=== PATIENT | female | born 1940 | race Hispanic/Latino ===

== ENCOUNTER 2018-06-08 17:27 | Observation (INO) | payer MEDICARE ==
[~2018-06-08] VITALS: Ht 147.3 cm; Wt 79.1 kg
[2018-06-08 19:00] LABS: BILIRUBIN,URINE NEGATIVE (NEGATIVE); CLARITY,URINE CLEAR (CLEAR); COLOR,URINE YELLOW (YELLOW); KETONES,URINE NEGATIVE (NEGATIVE); LEUKOCYTE ESTERASE ,URINE TRACE (NEGATIVE); NITRITE,URINE NEGATIVE (NEGATIVE); PROTEIN,URINE DIPSTICK NEGATIVE (NEGATIVE); URINE UROBILINOGEN 0.2 mg/dL (0.2 - 1)
--- NOTE | 2018-06-08 19:11 | NUR ---
SEEN IN TRIAGE BY EDITORIAL INTERN
[2018-06-08 19:12] LABS: AMORPHOUS SEDIMENT,URINE FEW (FEW); BACTERIA,URINE MODERATE /HPF; WBC,URINE (MAN) 0-5 /HPF (0-5)
--- NOTE | 2018-06-08 19:46 | Diagnostic Imaging Report ---
EXAMINATION: CHEST SINGLE (PORTABLE) INDICATION: Chest pain. ^CHEST PAIN ^Y COMPARISON: None FINDINGS: TUBES and LINES: None. LUNGS: Lungs are well inflated. Lungs are clear. There is no evidence of pneumonia or pulmonary edema. PLEURA: No pleural effusion or pneumothorax. HEART AND MEDIASTINUM: The cardiomediastinal silhouette is unremarkable. BONES AND SOFT TISSUES: No acute osseous lesion. Soft tissues are unremarkable. UPPER ABDOMEN: No free air under the diaphragm. IMPRESSION: No acute thoracic abnormality. Signed by: Dr. Rick Daigle M.D. on 06/08/2018 7:43 PM
[2018-06-08 19:47] LABS: BASOPHILS % 0.4 % (0.0-1.0); EOSINOPHILS # (AUTO) 0.1 (0.0-0.4); EOSINOPHILS % 1.3 % (0.0-6.0); HEMATOCRIT 38.6 % (38.2-49.6); HEMOGLOBIN 12.3 g/dL (14.0-18.0); LYMPHOCYTES # (AUTO) 1.8 (1.0-3.2); MEAN CORPUSCULAR HEMOGLOBIN 30.3 pg (28-32); MEAN CORPUSCULAR HGB CONC 31.9 g/dL (31-35); MEAN CORPUSCULAR VOLUME 95.1 fL (81-99); MONOCYTES # (AUTO) 0.5 (0.2-0.8); MONOCYTES % 6.1 % (4.4-11.3); NEUTROPHILS # (AUTO) 5.8 (2.1-6.9); NEUTROPHILS % 69.8 % (38.7-80.0); PLATELET COUNT 171 x10e3/uL (140-360); RED BLOOD COUNT 4.06 x10e6/uL (4.3-5.7); RED CELL DISTRIBUTION WIDTH 13.4 % (11.7-14.4)
[2018-06-08 19:55] LABS: INR 0.92; PROTHROMBIN TIME 12.9 seconds (11.9-14.5)
[2018-06-08 19:56] LABS: PARTIAL THROMBOPLASTIN TIME 28.1 seconds (23.8-35.5)
[2018-06-08 20:02] LABS: ALBUMIN 3.8 g/dL (3.5-5.0); ALBUMIN/GLOBULIN RATIO 1.3 (0.8-2.0); CREATININE, SERUM 1.23 mg/dL (0.72-1.25)
[2018-06-08 20:12] LABS: CREATINE KINASE MB 7.1 ng/mL (0-5.0)
[2018-06-08] MEDS ORDERED: LISINOPRIL40 MG PO (21:55)
[2018-06-08] MEDS ORDERED: PIOGLITAZONE HC30 MG PO (21:55)
[2018-06-08] MEDS ORDERED: LOVASTATIN20 MG PO (21:55)
[2018-06-08] MEDS ORDERED: GLIPIZIDE5 MG PO (21:55)
[2018-06-08] MEDS ORDERED: SODIUM CHLORIDE FLUSH 10 ML SYR INJ PRN (22:00)
[2018-06-08] MEDS ORDERED: ONDANSETRON HCL INJ 2MG/ML 2ML 2 MG/ML VIAL IV PRN (22:00)
[2018-06-08] MEDS ORDERED: ACETAMINOPHEN 325 MG TAB PO PRN (22:00)
--- OUTSIDE RECORDS SUMMARY | 2018-06-08 22:00 | XMS REPORT ---
Author [facility] Address Unknown Phone Unavailable Care Team Providers Care Correction Officer [employer] Name Role Phone Bernard PALACIOS Unavailable Unavailable Problems This patient has no known problems. Allergies, Adverse Reactions, Alerts This patient has no known allergies or adverse reactions. Medications This patient has no known medications. Results Test Description Test Time Test Comments Text Results Atomic Results Result Comments CHEST SINGLE (PORTABLE) 2018-06-08 19:43:00 [place] [address] Patient Name: NAKITA GARCIA MR #: [id number] : 1940 Age/Sex: 77/M Req #: [id number] Adm Physician: Ordered by: YONIS PALACIOS MD Report #: [id number] Location: ER Room/Bed: Procedure: [id number] DX/CHEST SINGLE (PORTABLE) Exam Date: Exam Time: REPORT STATUS: Signed EXAMINATION: CHEST SINGLE (PORTABLE) INDICATION: Chest pain. CHEST PAIN Y COMPARISON: None FINDINGS: TUBES and LINES: None. LUNGS: Lungs are well inflated. Lungs are clear. There is no evidence of pneumonia or pulmonary edema. PLEURA: No pleural effusion or pneumothorax. HEART AND MEDIASTINUM: The cardiomediastinal silhouette is unremarkable. BONES AND SOFT TISSUES: No acute osseous lesion. Soft tissues are unremarkable. UPPER ABDOMEN: No free air under the diaphragm. IMPRESSION: No acute thoracic abnormality. Signed by: Dr. Rick Daigle M.D. on 06/08/2018 7:43 PM Dictated By: RICK DAIGLE MD, MD 42 Transcribed By: SHAHID on 06/08/181942 COPY TO: YONIS PALACIOS MD
[2018-06-08] MEDS: FAMOTIDINE 20 MG/2 ML VIAL IV SCH (22:12)
[2018-06-09] VITALS (8 sets, daily range): BP systolic 126–142; BP diastolic 56–69
[2018-06-09 05:50] LABS: BASOPHILS % 0.3 % (0.0-1.0); EOSINOPHILS # (AUTO) 0.2 (0.0-0.4); EOSINOPHILS % 2.2 % (0.0-6.0); HEMATOCRIT 35.1 % (34.2-44.1); HEMOGLOBIN 11.3 g/dL (12.0-16.0); LYMPHOCYTES # (AUTO) 1.7 (1.0-3.2); LYMPHOCYTES % 24.5 % (18.0-39.1); MEAN CORPUSCULAR HGB CONC 32.2 g/dL (31-35); MEAN CORPUSCULAR VOLUME 96.2 fL (81-99); MONOCYTES # (AUTO) 0.6 (0.2-0.8); MONOCYTES % 8.4 % (4.4-11.3); NEUTROPHILS # (AUTO) 4.4 (2.1-6.9); NEUTROPHILS % 64.3 % (38.7-80.0); PLATELET COUNT 139 x10e3/uL (140-360); RED BLOOD COUNT 3.65 x10e6/uL (3.6-5.1); RED CELL DISTRIBUTION WIDTH 13.3 % (11.7-14.4)
[2018-06-09] MEDS: NITROGLYCERIN 2% OINT 1 GM PKT TOP SCH ×2 (06:00)
--- NOTE | 2018-06-09 06:29 | NUR ---
The patient is laying in bed on her left side. She has denied pain/discomfort in her chest all night. She is no apparent distress, respirations are even and unlabored. She stated that she preferred not to receive the nitroglycerin patch as she has not experienced any discomfort. Blood pressure within limits. Denies any other symptoms at this time. Bed low, wheels locked and call light within reach. Daughter at bedside.
[2018-06-09 07:08] LABS: ALBUMIN 3.1 g/dL (3.5-5.0); ALBUMIN/GLOBULIN RATIO 1.1 (0.8-2.0); ANION GAP 15.1 mmol/L (8-16); CALCIUM 8.9 mg/dL (8.4-10.2); CHOL/HDL RATIO 2.5 (3.0-3.6); CREATININE, SERUM 1.14 mg/dL (0.57-1.11); POTASSIUM 4.1 mmol/L (3.5-5.1)
--- NOTE | 2018-06-09 08:14 | NUR ---
Patient resting in bed,Alert with no distress, family at bed side
[2018-06-09] MEDS ORDERED: SODIUM CHLORIDE 0.9% 1000ML 1,000 ML IV SCH (08:30)
[2018-06-09] MEDS ORDERED: DEXTROSE 50% SYRINGE 50 ML IV PRN (08:45)
[2018-06-09] MEDS ORDERED: ASPIRIN 81 MG ENTERIC COATED PO SCH (09:00)
[2018-06-09] MEDS: FAMOTIDINE 20 MG/2 ML VIAL IV SCH (09:04)
[2018-06-09] MEDS: LISINOPRIL 20 MG TAB PO SCH ×2 (09:04→16:38)
[2018-06-09] MEDS: SODIUM CHLORIDE 0.45% 1,000 ML IV SCH (09:04)
[2018-06-09] MEDS ORDERED: ONDANSETRON HCL 4 MG ORAL DISINTEGRATING TAB PO PRN (10:00)
[2018-06-09 11:55] LABS: CREATINE KINASE MB 4.8 ng/mL (0-5.0)
--- NOTE | 2018-06-09 13:31 | Diagnostic Imaging Report ---
EXAMINATION: CT of the abdomen and pelvis with contrast. TECHNIQUE: Spiral CT images of the abdomen and pelvis were performed from the lung bases to the lesser trochanters after the intravenous administration of 100 cc of Isovue-370 and the oral administration of water. Coronal and sagittal reformatted images were obtained. COMPARISON: None. CLINICAL HISTORY:Abdominal pain DISCUSSION: ABDOMEN/PELVIS: LOWER THORAX:6-7 mm solid nodule medial segment right lower lobe. Lung bases otherwise unremarkable. HEPATOBILIARY: No focal hepatic lesions. No intra-or extrahepatic biliary ductal dilation. The gallbladder is normal. SPLEEN: No splenomegaly. PANCREAS: No focal masses or ductal dilatation. ADRENALS: No adrenal nodules. KIDNEYS/URETERS: Subcentimeter hypoattenuating lesions within both kidneys, too small to further characterize but likely represent small cysts. 1.3 cm parenchymal cyst in the right kidney. No hydronephrosis. No renal or ureteral calculi. PELVIC ORGANS/BLADDER: The urinary bladder is unremarkable. Uterus is anteflexed and appears normal. No adnexal mass. PERITONEUM/RETROPERITONEUM: No ascites. No pneumoperitoneum. LYMPH NODES: No pelvic sidewall, retroperitoneal, or mesenteric lymphadenopathy. VESSELS: Atherosclerotic calcification of the abdominal aorta and major branch vessels without aneurysmal dilatation. Portal vein, splenic vein, and central superior mesenteric vein are patent. GI TRACT: The large bowel shows no evidence of distention or wall thickening. Gas and fecal material are noted throughout. The appendix is normal. There is no small bowel dilatation to suggest obstruction. BONES AND SOFT TISSUE: No osseous destructive lesions. Multilevel degenerative disc changes and facet arthropathy of the lumbar spine. Small fat-containing umbilical hernia without inflammatory change. IMPRESSION: No acute intra-abdominal or pelvic CT abnormalities. 6-7 mm solid nodule in the right lower lobe should be further evaluated by follow-up CT scan of the chest without contrast in 6-12 months per Fleischner Society 2017 guidelines. Atherosclerotic vascular disease. Signed by: Dr. Michael Love M.D. on 06/09/2018 1:28 PM
--- NOTE | 2018-06-09 13:44 | Consultation ---
DATE OF CONSULTATION: 06/08/2018 REASON FOR CONSULTATION: Chest pain. CONSULTING PHYSICIAN: Dr. Bravo. HISTORY OF PRESENT ILLNESS: This is a pleasant 77-year-old female, who presented with chest pain. According to daughter at the bedside, she has history of high blood pressure, diabetes, and hyperlipidemia, and she complained of chest pain x3 days. She described it as a constant pressure on a scale of 3/10 with no radiation and generalized muscle weakness. She denied any palpitation, any shortness of breath, any diaphoresis, any headache, nausea, or vomiting. Troponin x2 was negative. CK and CK-MB was elevated. Chest x-ray showed no abnormalities. BNP 118. An EKG showed normal sinus rhythm with no ST abnormalities. PAST MEDICAL HISTORY: Hypertension, diabetes, hyperlipidemia. PAST SURGICAL HISTORY: Bilateral cataract surgery. FAMILY HISTORY: Positive for diabetes. SOCIAL HISTORY: No smoking. No drinking. She lives at home with the daughter. MEDICATIONS: She was on glipizide, lovastatin, lisinopril, and pioglitazone. ALLERGIES: SHE IS NOT ALLERGIC TO ANY MEDICATION. REVIEW OF SYSTEMS: Negative except those mentioned above. PHYSICAL EXAMINATION: VITAL SIGNS: Temperature 97, heart rate 62, blood pressure 139/65, respirations 18, oxygen saturation 99% on room air. GENERAL: She is awake, alert, and oriented x3. HEENT: Mucous membranes moist. NECK: Supple. LUNGS: Bilateral clear to auscultation. CARDIOVASCULAR: S1, S2 present. ABDOMEN: Soft. NEUROLOGICAL: Intact. EXTREMITIES: With no edema. LABS: Sodium 141, potassium 4.1, chloride 109, CO2 of 21, BUN 28, creatinine 1.14, glucose 165. White blood cell 6.87, hemoglobin 11.3, hematocrit 35.1, platelet 139. PT 12.9, PTT 28.1, INR 0.92. IMPRESSION: 1. Chest pain. 2. Acute rhabdomyolysis. 3. Hypertension. 4. Diabetes. 5. Hyperlipidemia. PLAN: 1. We will get serial cardiac enzymes. 2. We will put her on IV fluids. 3. Pending echo to assess the LV and the valve function. 4. We will hold her statin for now. 5. We will continue her blood pressure medication. Further cardiac workup pending clinical course. Thank you for this consultation. Dictated by Sunny Gilliland, [employer] C[employer]TER FINISHER MD ALONSO Guerra/CE /[id number]
--- NOTE | 2018-06-09 14:24 | History and Physical ---
PRIMARY CARE PHYSICIAN: Dr. Emir Diehl. PIPELAYER: Dr. Daniel Vuong. CHIEF COMPLAINT: Epigastric pain. HISTORY OF PRESENT ILLNESS: This is a 77-year-old female recently diagnosed with diabetes with Dr. Emir Diehl. The patient was placed on some medication, she could not recall the name. Apparently, she was sleeping during the night and when she lies down, she gets some epigastric pain that radiate into her back. The patient's first set and second set of cardiac enzymes were negative. Baseline hypertension, newly diagnosed diabetes type 2, on home medications. PAST MEDICAL HISTORY: Obesity, diabetes type 2, hypertension, dyslipidemia. PAST SURGICAL HISTORY: Noncontributory. SOCIAL HISTORY: The patient does not smoke or use alcohol. No recreational drugs. ALLERGIES: NO KNOWN ALLERGIES. HOME MEDICATIONS: Glipizide, lisinopril, lovastatin, and Actos. REVIEW OF SYSTEMS: Epigastric pain completely resolved. No headaches. No nausea. No vomiting. PHYSICAL EXAMINATION: VITAL SIGNS: Temperature is 97, blood pressure 139/65, pulse rate 62, respirations 18. GENERAL: The patient is not in acute distress. She is awake. HEENT: Normocephalic, atraumatic. Anicteric. NECK: Supple grossly. PULMONARY: Diminished breath sounds without any wheezing or rales. CARDIOVASCULAR: S1, S2. Regular rate and rhythm. ABDOMEN: Obese, but some tenderness along the epigastric on deep palpation. No distention. No guarding. EXTREMITIES: No cyanosis or edema. NEUROLOGIC: No gross focal deficit. LABORATORY DATA: Sodium is 141, potassium 4.1, chloride 109, bicarb 21, BUN is 28, creatinine 1.1, glucose 155. WBC 6.8, hemoglobin 11.3, hematocrit 35, platelets are 139. Liver enzymes are unremarkable. IMPRESSION: 1. Epigastric pain, reproducible with palpation. 2. Baseline hypertension with recent diabetes type 2 diagnosis and also dyslipidemia. PLAN: Continue home medication. We will stop the Actos. Gentle IV fluids. Check cardiac enzymes. Check echocardiogram. We will monitor the patient closely. MD ANUPAMA Elias/MODL /[id number]
[2018-06-09] MEDS ORDERED: IOPAMIDOL 370 MG/ML 200 ML INFUS..BTL INJ ONE (14:25)
[2018-06-09] MEDS ORDERED: SODIUM CHLORIDE 0.9% 50ML 50 ML ONE (14:25)
[2018-06-09] MEDS: GLIPIZIDE 5 MG TAB PO SCH (16:38)
[2018-06-09] MEDS: INSULIN LISPRO 100 UNIT/1 ML 3ML VIAL SQ SCH ×2 (16:46→21:00)
--- NOTE | 2018-06-09 19:00 | NUR ---
received report from day nurse. patient is resting comfortably in bed.
[2018-06-09] MEDS ORDERED: SIMVASTATIN 20 MG TAB PO SCH (21:00)
[2018-06-09] MEDS: FAMOTIDINE 20 MG TAB PO SCH (21:15)
[2018-06-10] VITALS: BP 122/57
[2018-06-10] MEDS: SODIUM CHLORIDE 0.45% 1,000 ML IV SCH (00:42)
[2018-06-10 04:00] VITALS: BP 142/65
[2018-06-10 06:02] LABS: ANION GAP 11.6 mmol/L (8-16); CALCIUM 9.2 mg/dL (8.4-10.2); CREATININE, SERUM 1.12 mg/dL (0.57-1.11); POTASSIUM 4.6 mmol/L (3.5-5.1)
--- NOTE | 2018-06-10 06:58 | NUR ---
report given to day nurse. patient is resting comfortably in bed.
--- NOTE | 2018-06-10 07:19 | NUR ---
patient resting in bed. Alert with no distress, call light in reach, family at bed side
[2018-06-10 07:27] VITALS: BP 142/65
[2018-06-10] MEDS: INSULIN LISPRO 100 UNIT/1 ML 3ML VIAL SQ SCH (07:30)
[2018-06-10 07:36] VITALS: BP 178/73
[2018-06-10] MEDS: GLIPIZIDE 5 MG TAB PO SCH (07:50)
[2018-06-10] MEDS: LISINOPRIL 20 MG TAB PO SCH (08:16)
[2018-06-10] MEDS: FAMOTIDINE 20 MG TAB PO SCH (08:16)
[2018-06-10] MEDS ORDERED: LOPRESSOR25 MG PO (09:37)
[2018-06-10] MEDS ORDERED: LORATADINE10 MG PO (09:43)
[2018-06-10] MEDS ORDERED: PEPCID20 MG PO (09:44)
--- NOTE | 2018-06-10 10:10 | NUR ---
PATIENT DISCHARGED HOME, AAOx3, Prescription given, patient verbalized understanding, denies any pain or SOB, IV canula removed with tip intact, there is a skin tear on right arm, patient and family stated it happened from home she hit table. covered up with gauze. Patient in no distress, daughter at bed side taking her home.,
--- NOTE | 2018-06-11 04:08 | Discharge Summary ---
PRIMARY CARE PHYSICIAN: Dr. Emir Diehl. CONSULTANTS: Dr. Daniel Vuong. FINAL DIAGNOSES: 1. Epigastric pain, most likely reflux. 2. Hypertensive urgency. 3. Possible side effect of Actos. SUMMARY: The patient is a 77 years old female, came in with multiple symptoms. Cardiac enzyme has been negative. The patient is otherwise stable. Sugars in 112 blood sugar. Hemoglobin and hematocrit 13.3 and 35.1. The patient is otherwise stable. She was seen by Dr. Daniel Vuong. Echocardiogram showed ejection fraction of 60%. The patient is stable now. She does have a small 7 mm right lower lobe lung nodule. We will need to have a followup on a CT chest without contrast in approximately 6 to 12 months. The patient is otherwise stable. Discharged home with Cheratussin AC 5 mL q.4 hours as needed for cough, Lopressor 25 mg b.i.d., Claritin 10 mg daily, and Pepcid 40 mg b.i.d. The patient to follow up with Dr. Vuong in approximately 1 to [address] Emir Diehl in 1 to 2 weeks. The patient is stable and discharged home today. MD ANUPAMA Elias/CE /[id number]
== END 2018-06-10 10:20 | disposition home or self-care (01) ==
LOC: ER 17:27 → EDSEX 17:27 → ERHOLD 21:58 → IMCU 23:22
PROVIDERS: ADMIT Internal Medicine; ATTEND Internal Medicine
DX: R07.89 Other chest pain (principal); I10 Essential (primary) hypertension; I16.0 Hypertensive urgency; R10.13 Epigastric pain; E11.9 Type 2 diabetes mellitus without complications; E78.5 Hyperlipidemia, unspecified; Z83.3 Family history of diabetes mellitus; Z82.49 Family history of ischemic heart disease and other diseases of the circulatory system; E66.9 Obesity, unspecified; M62.82 Rhabdomyolysis; N17.9 Acute kidney failure, unspecified; R91.8 Other nonspecific abnormal finding of lung field; Z68.36 Body mass index [BMI] 36.0-36.9, adult; Z79.84 Long term (current) use of oral hypoglycemic drugs
CPT/HCPCS: 36415 ×3; 71045; 74177; 80048; 80053 ×2; 80061; 81001; 82550 ×2; 82553 ×2; 82948 ×2; 83036; 83735; 83880; 84443; 84484 ×2; 85025 ×2; 85610; 85730; 93005; 93306; 96360; 96361; 99284; G0378 ×3; Q9967

== ENCOUNTER → 2020-07-10 | Outpatient (CLI) | payer MEDICARE ==
[~2020-07-10] MED LIST: GLIPIZIDE5 MG PO; LISINOPRIL40 MG PO; LOPRESSOR25 MG PO; LORATADINE10 MG PO; LOVASTATIN20 MG PO; PEPCID20 MG PO; PIOGLITAZONE HC30 MG PO
== END ==
LOC: CT 15:43
PROVIDERS: ATTEND Specialist
DX: M25.512 Pain in left shoulder (principal); S42.292A Other displaced fracture of upper end of left humerus, initial encounter for closed fracture; W19.XXXA Unspecified fall, initial encounter